=== PATIENT | female | born 2005 | race Caucasian/White ===

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

== ENCOUNTER → 2023-01-17 | Outpatient (CLI) | payer BC ==
[2023-01-17 22:09] LABS: HCT 40.5 % (37.2-46.3); HGB 13.6 d/dL (12.0-15.0); MCH 30.6 pg (27.0-32.0); MCHC 33.6 d/dL (32.0-37.0); MCV 91.2 FL (80.0-97.0); NRBC Per 100 WBC 0 X 10*3/uL (0.00-0.01); Platelet Count 291 X 10*3/uL (140-440); RBC 4.44 X 10*6/uL (4.10-5.20); RDW 11.7 % (11.5-14.5); WBC 5.96 X 10*3/uL (4.50-10.00)
[2023-01-17 23:08] LABS: BUN/Creat Ratio 18.25 Ratio (12.00-20.00); Blood Urea Nitrogen 14.6 mg/dL (9.0-27.0); Calcium 9.4 mg/dL (8.7-10.3); Carbon Dioxide 26.1 mmol/L (21.6-31.8); Chloride 105 mmol/L (96-109); Glucose 94 mg/dL (70-110); Potassium 4.9 mmol/L (3.5-5.5); Sodium 143 mmol/L (135-145)
[2023-01-18 13:52] LABS: T4, Free (Free Thyroxine) 1.22 ng/dL (0.83-1.43)
== END | disposition home or self-care (01) ==
LOC: LABWHC1 14:23
PROVIDERS: ATTEND Pediatrics
DX: R56.9 Unspecified convulsions (principal)
CPT/HCPCS: 36415; 80048; 82040; 82248; 82728; 83036; 83735; 84075; 84155; 84439; 84443; 84450; 84460; 85027